=== PATIENT | female | born 1980 | race Caucasian/White ===

== ENCOUNTER 2016-07-27 18:47 | Observation (INO) | payer OTHER ==
[2016-07-30] MEDS ORDERED: PRENATAL GUMMI1 EACH PO (13:06)
[2016-07-30] MEDS ORDERED: UNISOM25 MG PO (13:07)
[2016-07-30] MEDS ORDERED: [UNRECOGNIZED DRUG - OTHER] PO (13:07)
[2016-07-30] MEDS ORDERED: VITAMIN D-32000 UNI1 PO (13:07)
[2016-07-30] MEDS ORDERED: EFFEXOR37.5 MG PO (13:07)
[2016-07-30] MEDS ORDERED: PRILOSEC DPS20 MG PO (13:08)
[2016-07-30] MEDS ORDERED: ZOFRAN8 MG PO (13:08)
[2016-07-30] MEDS ORDERED: LOVENOX DP60 MG/0.6 SQ (13:08)
[2016-07-30] MEDS ORDERED: REGLAN-DPS10 MG PO (13:08)
== END 2016-07-29 14:05 | disposition home or self-care (01) ==
DX: R11.2 Nausea with vomiting, unspecified (principal); E87.6 Hypokalemia; E78.00 Pure hypercholesterolemia, unspecified; K44.9 Diaphragmatic hernia without obstruction or gangrene; F32.9 Major depressive disorder, single episode, unspecified; G47.00 Insomnia, unspecified; D50.9 Iron deficiency anemia, unspecified; K21.9 Gastro-esophageal reflux disease without esophagitis; Z79.899 Other long term (current) drug therapy; Z88.0 Allergy status to penicillin; Z88.5 Allergy status to narcotic agent; Z91.048 Other nonmedicinal substance allergy status; Z98.890 Other specified postprocedural states